=== PATIENT | female | born 1960 | race Caucasian/White ===

== ENCOUNTER 2017-05-03 18:11 | Emergency (ER) | payer OTHER ==
[~2017-05-03] VITALS: Ht 167.6 cm; Wt 120.0 kg
[~2017-05-03 18:11] MED LIST: ACYCLOVIR400 MG PO; ALINIA500 MG PO; AMITRIPTYLIN100 MG PO; AMOXICILLIN/CL875 MG OR; AUGMENTIN875TAB PO; CIPROFLOXACN500 MG PO; KEFLEX500 MG PO; LOVASTATIN10 M1 PO; MACRODANTIN100 MG PO; METFORMIN500 MG PO; NAPROSYN500 MG PO; PRILOSEC40 MG PO; PYRIDIUM200 MG PO; URIBEL118 MG PO; ZANTAC 150 PO
[2017-05-03 19:49] LABS: HEMATOCRIT 42.6 % (37.0-47.0); HEMOGLOBIN 13.5 g/dl (12.0-16.0); IMMATURE GRANULOCYTES 0.3 % (0.0-1.0); MEAN CELL VOLUME 81.9 fL CALC (80.0-100.0); MEAN CORPUSCULAR HGB CONC 31.7 g/L CALC (32.0-36.0); NEUT# 8.21 thou/uL (2.00-7.15); RED BLOOD COUNT 5.2 mill/uL (4.20-5.60); RED CELL DISTRI WIDTH 14.7 % (11.5-15.5)
[2017-05-03 20:13] LABS: ALBUMIN 4.6 g/dL (3.2-5.0); ALKALINE PHOSPHATASE 87 u/l (38-126); AMYLASE < 30 u/l (30-110); ANION GAP 23 (6-22 (CALC)); BILIRUBIN, TOTAL 0.8 mg/dL (0.0-1.4); BUN 22 mg/dL (7-17); BUN/CREATININE RATIO 25 (12-20 (CALC)); CALCIUM 9.8 mg/dL (8.4-10.2); CARBON DIOXIDE 21 mmol/l (22-30); CHLORIDE 101 mmol/l (95-108); CREATININE 0.9 mg/dL (0.5-1.0); GFR > 60 ML/MIN (>=60 (CALC)); GFR FOR AFR.AMER. > 60 ML/MIN (>=60 (CALC)); GLUCOSE 135 mg/dL (65-105); LIPASE 55 u/l (23-300); POTASSIUM 4.7 mmol/l (3.5-5.1); SGOT/AST 27 u/l (14-36); SGPT/ALT 40 u/l (9-52); SODIUM 139 mmol/l (137-146); TOTAL PROTEIN 7.4 g/dL (6.3-8.2)
[2017-05-03 20:20] VITALS: BP 111/64
[2017-05-03 20:22] LABS: MYOGLOBIN 68 ng/mL (0 - 62)
== END 2017-05-03 20:20 | DRG 392 ==
LOC: ED 18:11
PROVIDERS: Emergency Medicine
DX: R10.9 Unspecified abdominal pain (principal); I34.1 Nonrheumatic mitral (valve) prolapse; K21.9 Gastro-esophageal reflux disease without esophagitis; Z98.84 Bariatric surgery status
CPT/HCPCS: S0164

== ENCOUNTER → 2022-11-14 | Day surgery (SDC) | payer OTHER ==
[~2022-11-14] VITALS: Ht 167.6 cm; Wt 104.3 kg
[~2022-11-14] MED LIST changes: +B125000 MCG; +BIOTIN MAXI10000 MC1; +CLOBETASOL0.051 EX; +ESTRACE0.1 MG/GM VA; +FOLIC ACID1 M1 PO; +LYSINE1000 MG PO; +OMEPRAZOLE20 MG PO; +SUPER B COMP PO; +VITAMIN E180 MG; +ZINC50 M1 PO
[2022-11-14 10:47] VITALS: BP 116/86
== END | disposition home or self-care (01) | DRG 951 ==
LOC: ENDO 07:30 → ORM 11:15
PROVIDERS: ATTEND Surgery
PROC: 0DJD8ZZ Inspection of Lower Intestinal Tract, Via Natural or Artificial Opening Endoscopic (ICD-10-PCS; principal; 2022-11-14)
PROC: 0DJ08ZZ Inspection of Upper Intestinal Tract, Via Natural or Artificial Opening Endoscopic (ICD-10-PCS; 2022-11-14)
DX: Z12.11 Encounter for screening for malignant neoplasm of colon (principal); K64.8 Other hemorrhoids; K44.9 Diaphragmatic hernia without obstruction or gangrene; C51.9 Malignant neoplasm of vulva, unspecified; Z86.010 Personal history of colon polyps; Z80.0 Family history of malignant neoplasm of digestive organs